=== PATIENT | male | born 1945 | race Caucasian/White ===

== ENCOUNTER 2016-11-27 10:43 | Inpatient (IN) | payer MEDICARE, OTHER ==
[2016-11-25 16:12] LABS: BASOPHILS 0.1 %; BASOPHILS ABSOLUTE 0.01 10/3/uL (0.0-0.16); EOSINOPHILS 1.3 %; EOSINOPHILS ABSOLUTE 0.11 10/3/uL (0.0-0.53); HEMATOCRIT 42.3 % (40.0-51.0); IMMATURE GRANULOCYTES 0.4 %; IMMATURE GRANULOCYTES ABSOLUTE 0.03 10/3/uL (0.0-0.11); LYMPHOCYTES 21.6 %; LYMPHOCYTES ABSOLUTE 1.84 10/3/uL (0.67-4.30); MANUAL DIFF NO %; MEAN CORPUS HGB CONC 33.1 g/dL (32.0-36.0); MEAN CORPUSCULAR HEMOGLOB 29.5 pg (26.0-34.0); MEAN CORPUSCULAR VOLUME 89.2 fL (80-100); MEAN PLATELET VOLUME 9.7 fL (9.2-13.0); MONOCYTES 7.3 %; MONOCYTES ABSOLUTE 0.62 10/3/uL (0.21-1.20); NEUTROPHILS 69.3 %; NEUTROPHILS ABSOLUTE 5.92 10/3/uL (2.02-8.40); PLATELET COUNT 198 10/3/uL (150-400); RBC DISTRIBUTION WIDTH 13.6 % (12.0-16.0); RED CELL COUNT 4.74 10/6/uL (4.7-6.1); WHITE BLOOD CELLS 8.5 10/3/uL (4.5-10.5)
[2016-11-25 16:23] LABS: BUN (BLOOD UREA NITROGEN) 12 MG/DL (6-23); CHLORIDE, SERUM 105 MMOL/L (96-112); CO2 (CARBON DIOXIDE) 29 MMOL/L (24-34); CREATININE 0.78 MG/DL (0.70-1.30); GFR AFRICAN AMERICAN 107 ML/MIN (>=60); GFR NON AFRICAN AMERICAN 92 ML/MIN (>=60); GLUCOSE, SERUM 224 MG/DL (60-99); POTASSIUM, SERUM 3.8 MMOL/L (3.5-5.3); SODIUM, SERUM 140 MMOL/L (135-148)
[2016-11-26 14:23] LABS: ASCORBIC ACID (UR NOT ORDER) NEG (NEG); BILIRUBIN, URINE NEGATIVE (NEG); KETONE, URINE NEGATIVE (NEG); LEUKOCYTE ESTERASE(NOT OR NEG (NEG); WBC (NOT ORDERED) (RFLEX) 7 (0-5)
[~2016-11-27] VITALS: Ht 182.9 cm; Wt 110.8 kg
--- NOTE | ~2016-11-27 | DS ---
Discharge Summary [facility] [address] [place]. [address] NAME: KAREN GARCIA : 49 STATUS : ADM IN PAT#: [id number] AGE: 71 ADM/REG DATE : 11/27/16 MR#: [id number] REPORT SERV DATE: 11/29/16 DICTATED BY: TOMASZ ISAACS DATE: 11/29/16 REPORT STATUS : Draft TRANSCRIBED BY: MODL DATE: 11/29/16 ADMISSION DATE: 11/27/2016 DISCHARGE DATE: 11/29/2016 PROCEDURES: Left common femoral artery endarterectomy with patch angioplasty and left to right femoral-femoral bypass with 8 mm ringed PTFE on 11/27/2016. HISTORY AND PHYSICAL EXAMINATION: Please see complete history and physical exam please refer to the hospital chart. HOSPITAL COURSE: This is a 71-year-old gentleman, who presented with ischemic right limb and wounds. Previously, underwent endovascular aortic aneurysm repair in February of 2017. The right limb of the endovascular aortic aneurysm graft was found to be occluded and attempts to revascularize this in an endovascular fashion were unsuccessful. Recommendation was made for a femoral-femoral bypass. The patient was taken to the operating theater for femoral- femoral bypass on 11/27/2016. For further details of the operation, please refer to hospital chart. Postoperatively, the patient was transferred to the ICU. On postoperative day 1, he was transferred to the sargent doing quite well. Hospitalist Service was consulted for medical management during the course of the hospitalization. By postoperative day 2, on 11/29, the patient was deemed stable for discharge to home. DISPOSITION: Discharged to home. ACTIVITY: No heavy lifting greater than 10 pounds. DISCHARGE MEDICATIONS: Resume home medications. New medications, aspirin 81 mg p.o. daily, Plavix 75 mg daily for which prescription was written, and Percocet 5/325 1 tablet q.4 hours p.r.n. pain for which prescription was written dispensing numbers 40 with no refills. The patient is to followup with the [facility] this week for a wound check. [facility] Tomasz Isaacs DO / [id number] CC: Tomasz Isaacs DO
--- NOTE | ~2016-11-27 | OP ---
Record Of Operation [facility] [address] [place]. [address] NAME: KAREN GARCIA : 49 STATUS : ADM IN PAT#: [id number] AGE: 71 ADM/REG DATE : 11/27/16 MR#: [id number] REPORT SERV DATE: 11/28/16 DICTATED BY: TOMASZ ISAACS DATE: 11/27/16 REPORT STATUS : Draft TRANSCRIBED BY: MODGuertia DATE: 11/27/16 DATE OF PROCEDURE: 11/27/2016 PROCEDURE: 1. Left femoral endarterectomy. 2. Left voswiiu-zc-mfrpf femoral artery femoral-femoral bypass with 8-mm polytetrafluoroethylene. PREOPERATIVE DIAGNOSIS: Ischemic right lower extremity with occluded right common iliac artery stemming from an occluded right limb of an endovascular aortic aneurysm repair. POSTOPERATIVE DIAGNOSES: 1. Ischemic right lower extremity with occluded right common iliac artery stemming from an occluded right limb of an endovascular aortic aneurysm repair. 2. High-grade stenosis, left common femoral artery. ESTIMATED BLOOD LOSS: 300 mL. ANESTHESIA: General endotracheal anesthesia. INDICATIONS FOR PROCEDURE: This is a very pleasant 71-year-old gentleman, who presented to the office status post an endovascular aortic aneurysm repair in March 2016. He had an ischemic right lower extremity and attempts were made to open up this likely occluded lamina that was found on ultrasound of the previously placed Medtronic endovascular aortic aneurysm graft. These attempts to open this one were unsuccessful. Recommendations made for a femoral-femoral bypass. The procedure, benefits, alternatives, and indications were discussed extensively with the patient. All questions were answered. Consent was signed and placed in the chart. DESCRIPTION OF PROCEDURE IN DETAIL: On 11/27/2016, the patient was taken to the operating theater and placed in supine position on the operating table. After the uneventful induction of general endotracheal anesthesia, bilateral groins were prepped and draped in the usual sterile fashion. A time out was performed to identify the patient and proposed procedure to be performed. The entirety of the staff agreed and agreed to the proceed with the operation. Ancef 2 g was administered intravenously prior to first incision. Vertical incisions were made over the femoral arteries bilaterally. These were carried down with electrocautery. There was a hematoma on the left side, which made dissection slightly more difficult. Dissection was carried down on the femoral arteries and they were controlled proximally and distally. The profunda femoris and superficial femoral artery were controlled in each groin as well. An 8-mm [place] ringed Propaten graft was brought into the field and tunneled from the left groin to the right groin. The patient was systematically heparinized. The left artery was clamped which is the inflow artery. An arteriotomy was made and carried proximally and distally with Zhu scissors. The artery had a heavy burden of atherosclerotic disease within it. A decision was made than an endarterectomy would need to be performed. At that time, an endarterectomy was performed removing a great deal of plaque out of the artery. This is carried down in the proximal superficial femoral artery. Record Of Operation [facility] [address] [place]. [address] NAME: KAREN GARCIA : 49 STATUS : ADM IN [facility]#: [id number] AGE: 71 ADM/REG DATE : 11/27/16 MR#: [id number] REPORT SERV DATE: 11/28/16 DICTATED BY: TOMASZ ISAACS DATE: 11/27/16 REPORT STATUS : Draft TRANSCRIBED BY: [place] DATE: 11/27/16 There was excellent back-bleeding out of the superficial femoral artery and an excellent endpoint was achieved. There was also excellent back-bleeding out of the profunda. A Bovie and pericardial patch is brought in the field and approximated in the patch angioplasty fashion with a running 5-0 Prolene suture. Next, a longitudinal arteriotomy was made in the top of the patch and carried proximally and distally. The [place]-Pierre graft was tapered and end-to-side anastomosis was created with a running 5-0 Prolene suture. Next, control was gained on the right common femoral artery. A longitudinal arteriotomy was made, and while there was some plaque and the artery, it was deemed an endarterectomy was not necessary. An end-to-side anastomosis was created with a running 5-0 Prolene suture. This was found to be hemostatic and once control was released off the graft, excellent signals were achieved in the both feet bilaterally. It should be noted that there was excess redundancy noted in the right limb of the fem-fem bypass graft. It was thus decided to shorten this limb to take out much of the redundancy. The graft was clamped and a section of approximately 2 cm was removed. An end-to-end anastomosis was then created in tapered fashion with a running 5-0 Prolene suture. Again control was released, and there was excellent flow distal passed this point. At this juncture, hemostasis in the jovel were achieved. The deep dermis was closed with interrupted 2-0 Vicryl sutures, the more superficial fascia was closed with interrupted 3-0 Vicryl sutures, and the skin was closed with a running 4-0 Monocryl suture. Dermabond was applied over this. The patient was awakened in general anesthesia and taken to PACU in stable condition. There were no apparent intraoperative complications. The patient tolerated the procedure well. All counts were correct at the conclusion of the operation. [facility] Tomasz Isaacs DO / [id number] CC: DO Yifan Molina M.D.
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
[~2016-11-27 10:43] MED LIST: AMB10 PO; AT25 PO; BACDS PO; CLOBETASOL0.05 % TOP; CLOTRIM/BETA EX; CYMBALTA20 PO; CYMBALTA60 PO; DIAMODE2 MG PO; FISH OIL1200 MG PO; FISH-EPA1000 MG PO; FLOMAX4 PO; GARAOPHOIN OPH; GENTAMICIN INJ IM; GLUCCHONDR PO; IMOD PO; KLOR-CON 1010 MEQ PO; L20 PO; L40 PO; LANTUS SC; LANTUS SQ; LEVAQUIN5T PO; LOTE20 PO; LOTE40 PO; MAALOX ADVANCED PO; MICRO GUARD2 % EX; MONODOX100 MG PO; MULTIPLE VIT PO; MULTIVITAMI1 PO; NIZORALCRM TOP; NIZORSHAM T; NOVOLOG SC; NOVOLOG SQ; REFRESH OPH SO0.3 ML OPH; REFRESH PM OPH; REFRESH TEAR0.5 % OPH; SEROQUEL1C PO; SEROQUEL50 MG PO; SYMLIN0.6 MG/ML SC; TAB-A-VITE PO; TREX PO; TRIAMCINOLONE; TRIDERM0.1 % EX; VITAMIN D31000 UNIT PO; VITE PO; VYTORIN 10/40 T1 TAB PO; VYTORIN 10/80 T1 TAB PO; WELLXL150 PO; [UNRECOGNIZED DRUG - SUPPLY] OP
[2016-11-27 19:31] LABS: BASOPHILS 0.1 %; BASOPHILS ABSOLUTE 0.01 10/3/uL (0.0-0.16); EOSINOPHILS 0.3 %; EOSINOPHILS ABSOLUTE 0.03 10/3/uL (0.0-0.53); IMMATURE GRANULOCYTES 0.2 %; IMMATURE GRANULOCYTES ABSOLUTE 0.02 10/3/uL (0.0-0.11); LYMPHOCYTES 16.4 %; LYMPHOCYTES ABSOLUTE 1.43 10/3/uL (0.67-4.30); MEAN CORPUS HGB CONC 33.7 g/dL (32.0-36.0); MEAN CORPUSCULAR HEMOGLOB 29.8 pg (26.0-34.0); MEAN CORPUSCULAR VOLUME 88.3 fL (80-100); MEAN PLATELET VOLUME 9.5 fL (9.2-13.0); MONOCYTES 3.8 %; MONOCYTES ABSOLUTE 0.33 10/3/uL (0.21-1.20); NEUTROPHILS 79.2 %; NEUTROPHILS ABSOLUTE 6.91 10/3/uL (2.02-8.40); PLATELET COUNT 180 10/3/uL (150-400); RBC DISTRIBUTION WIDTH 13.7 % (12.0-16.0); WHITE BLOOD CELLS 8.7 10/3/uL (4.5-10.5)
[2016-11-27 19:34] LABS: HEMATOCRIT 32.3 % (40.0-51.0); HEMOGLOBIN 10.9 g/dL (13.6-17.8); MANUAL DIFF NO %; RED CELL COUNT 3.66 10/6/uL (4.7-6.1)
[2016-11-27 19:50] LABS: A/G RATIO 0.8 (0.7-1.9); ALBUMIN 2.4 G/DL (3.5-5.0); ALKALINE PHOSPHATASE 89 U/L (45-117); BUN (BLOOD UREA NITROGEN) 10 MG/DL (6-23); CALCIUM, SERUM 7.8 MG/DL (8.5-10.4); CHLORIDE, SERUM 110 MMOL/L (96-112); CO2 (CARBON DIOXIDE) 29 MMOL/L (24-34); CREATININE 0.69 MG/DL (0.70-1.30); GFR AFRICAN AMERICAN 112 ML/MIN (>=60); GFR NON AFRICAN AMERICAN 97 ML/MIN (>=60); GLOBULIN 3.1 G/DL (2.5-4.1); GLUCOSE, SERUM 138 MG/DL (60-99); POTASSIUM, SERUM 3.6 MMOL/L (3.5-5.3); SGOT(AST) 17 U/L (5-40); SGPT(ALT) 14 U/L (5-65); SODIUM, SERUM 147 MMOL/L (135-148); TOTAL BILIRUBIN 0.9 MG/DL (0-1.2); TOTAL PROTEIN 5.5 G/DL (6.0-8.5)
[2016-11-28 04:28] LABS: BASOPHILS 0.1 %; BASOPHILS ABSOLUTE 0.01 10/3/uL (0.0-0.16); EOSINOPHILS 0.1 %; EOSINOPHILS ABSOLUTE 0.01 10/3/uL (0.0-0.53); HEMATOCRIT 29.8 % (40.0-51.0); HEMOGLOBIN 10.1 g/dL (13.6-17.8); IMMATURE GRANULOCYTES 0.4 %; IMMATURE GRANULOCYTES ABSOLUTE 0.04 10/3/uL (0.0-0.11); LYMPHOCYTES 14.7 %; LYMPHOCYTES ABSOLUTE 1.65 10/3/uL (0.67-4.30); MEAN CORPUS HGB CONC 33.9 g/dL (32.0-36.0); MEAN CORPUSCULAR HEMOGLOB 29.8 pg (26.0-34.0); MEAN CORPUSCULAR VOLUME 87.9 fL (80-100); MEAN PLATELET VOLUME 9.6 fL (9.2-13.0); MONOCYTES 7.6 %; MONOCYTES ABSOLUTE 0.85 10/3/uL (0.21-1.20); NEUTROPHILS 77.1 %; NEUTROPHILS ABSOLUTE 8.66 10/3/uL (2.02-8.40); PLATELET COUNT 198 10/3/uL (150-400); RBC DISTRIBUTION WIDTH 13.7 % (12.0-16.0); RED CELL COUNT 3.39 10/6/uL (4.7-6.1); WHITE BLOOD CELLS 11.2 10/3/uL (4.5-10.5)
[2016-11-28 04:40] LABS: CALCIUM, SERUM 7.6 MG/DL (8.5-10.4); CHLORIDE, SERUM 106 MMOL/L (96-112); CO2 (CARBON DIOXIDE) 30 MMOL/L (24-34); CREATININE 0.78 MG/DL (0.70-1.30); GFR AFRICAN AMERICAN 107 ML/MIN (>=60); GFR NON AFRICAN AMERICAN 92 ML/MIN (>=60); POTASSIUM, SERUM 4.1 MMOL/L (3.5-5.3)
[2016-11-28 04:42] LABS: BUN (BLOOD UREA NITROGEN) 14 MG/DL (6-23); GLUCOSE, SERUM 234 MG/DL (60-99); SODIUM, SERUM 140 MMOL/L (135-148)
[2016-11-28 04:43] LABS: MANUAL DIFF NO %
[2016-11-29 03:22] LABS: BASOPHILS 0.1 %; BASOPHILS ABSOLUTE 0.01 10/3/uL (0.0-0.16); EOSINOPHILS 1.5 %; EOSINOPHILS ABSOLUTE 0.12 10/3/uL (0.0-0.53); HEMATOCRIT 28.4 % (40.0-51.0); HEMOGLOBIN 9.5 g/dL (13.6-17.8); IMMATURE GRANULOCYTES 0.2 %; IMMATURE GRANULOCYTES ABSOLUTE 0.02 10/3/uL (0.0-0.11); LYMPHOCYTES 26.6 %; LYMPHOCYTES ABSOLUTE 2.17 10/3/uL (0.67-4.30); MEAN CORPUS HGB CONC 33.5 g/dL (32.0-36.0); MEAN CORPUSCULAR HEMOGLOB 29.7 pg (26.0-34.0); MEAN CORPUSCULAR VOLUME 88.8 fL (80-100); MEAN PLATELET VOLUME 9.4 fL (9.2-13.0); MONOCYTES 10.3 %; MONOCYTES ABSOLUTE 0.84 10/3/uL (0.21-1.20); NEUTROPHILS 61.3 %; NEUTROPHILS ABSOLUTE 4.99 10/3/uL (2.02-8.40); PLATELET COUNT 177 10/3/uL (150-400); WHITE BLOOD CELLS 8.2 10/3/uL (4.5-10.5)
[2016-11-29 03:23] LABS: MANUAL DIFF NO %
[2016-11-29 03:36] LABS: BUN (BLOOD UREA NITROGEN) 15 MG/DL (6-23); CALCIUM, SERUM 8.3 MG/DL (8.5-10.4); CHLORIDE, SERUM 106 MMOL/L (96-112); CO2 (CARBON DIOXIDE) 28 MMOL/L (24-34); CREATININE 0.78 MG/DL (0.70-1.30); GFR AFRICAN AMERICAN 107 ML/MIN (>=60); GFR NON AFRICAN AMERICAN 92 ML/MIN (>=60); GLUCOSE, SERUM 89 MG/DL (60-99); POTASSIUM, SERUM 3.3 MMOL/L (3.5-5.3); SODIUM, SERUM 141 MMOL/L (135-148)
[2016-11-29 08:51] LABS: POTASSIUM, SERUM 3.8 MMOL/L (3.5-5.3)
[2016-11-29] MEDS ORDERED: ASAB PO (13:32)
[2016-11-29] MEDS ORDERED: PLAVIX PO (13:32)
[2016-11-29] MEDS ORDERED: ENDOCET1 TAB PO (13:38)
== END 2016-11-29 15:16 | disposition home or self-care (01) | DRG 253 ==
LOC: ENRESERVDT → ENRESERVTM → ENRESERV → SDC/OF 10:43 → CVICU 21:49 → 2SO 11-28 14:45
PROVIDERS: Surgery Vascular Surgery
PROC: 04CL0ZZ Extirpation of Matter from Left Femoral Artery, Open Approach (ICD-10-PCS; principal; 2016-11-27 12:45)
PROC: 041L0ZH Bypass Left Femoral Artery to Right Femoral Artery, Open Approach (ICD-10-PCS; 2016-11-27 12:45)
DX: T82.858A Stenosis of other vascular prosthetic devices, implants and grafts, initial encounter (principal); I69.351 Hemiplegia and hemiparesis following cerebral infarction affecting right dominant side; I10 Essential (primary) hypertension; E11.9 Type 2 diabetes mellitus without complications; F17.210 Nicotine dependence, cigarettes, uncomplicated; D64.9 Anemia, unspecified; Y83.2 Surgical operation with anastomosis, bypass or graft as the cause of abnormal reaction of the patient, or of later complication, without mention of misadventure at the time of the procedure; Y92.9 Unspecified place or not applicable; I70.201 Unspecified atherosclerosis of native arteries of extremities, right leg; Z79.4 Long term (current) use of insulin
CPT/HCPCS: 71020; 80048; 80053; 81001; 82330; 82962; 83735; 84132; 85025; 85347; 87641; 88304; 88311; 93005; A9270-GY; C1768; J0461; J0690; J2250; J2370; J2405; J2720; J3010; J3475; P9045